=== PATIENT | male | born 1940 | race Caucasian/White ===

== ENCOUNTER 2019-10-14 18:05 | Inpatient (IN) | payer OTHER ==
[~2019-10-14] VITALS: Ht 180.3 cm; Wt 99.8 kg
[2019-10-15] MEDS ORDERED: ASA81BEC PO (01:23)
[2019-10-15] MEDS ORDERED: LIPITOR 40 MG T40 M1 PO (01:24)
[2019-10-15] MEDS ORDERED: COREG12.5 MG PO (01:24)
[2019-10-15] MEDS ORDERED: FLONASE 0.05%50 MCG NASAL ×2 (01:25)
[2019-10-15] MEDS ORDERED: GABAPENTIN100 MG PO (01:26)
[2019-10-15] MEDS ORDERED: GLIPIZIDE 10 MG10 MG PO (01:27)
[2019-10-15] MEDS ORDERED: LANTUS SOL100 UNIT/1 SUBQ (01:28)
[2019-10-15] MEDS ORDERED: LEVO-T50 MCG PO (01:28)
[2019-10-15] MEDS ORDERED: METFORMIN HCL500 M3 PO (01:29)
[2019-10-15] MEDS ORDERED: MIRALAX119 GM PO (01:29)
[2019-10-15] MEDS ORDERED: MOBIC7.5 MG PO (01:30)
[2019-10-15] MEDS ORDERED: NITROGLYCERIN0.4 MG SUBLING (01:31)
[2019-10-15] MEDS ORDERED: ONETOUCH ULTRA1 EAC1 MC (01:32)
[2019-10-15] MEDS ORDERED: KLOR-CON M2020 MEQ PO (01:33)
[2019-10-15] MEDS ORDERED: FLOMAX0.4 MG PO (01:34)
[2019-10-15] MEDS ORDERED: ACCUPRIL40 MG PO ×2 (01:34→01:35)
--- NOTE | 2019-10-15 04:23 | NUR ---
PT AOX4 WITH INTERMITTENT FORGETFULNESS. PT DENIES PAIN AT REST, REPORTS SEVERE PAIN IN BUTTOCKS AND BACK WITH MOVEMENT AND REPOSITIONING. PT NOTED TO HAVE EXCORIATION TO BOTH BUTTOCKS, REDDNESS, AND TENDERNESS TO AREA. APPLIED BARRIER CREAM, ENCOURAGED FREQUENT REPOSITIONING. PRN PO APAP AND PRN IV FENTANYL AVAILABLE. PT /DPOA AT BEDSIDE SHORTLY AFTER PT ARRIVED VIA EMS. PT AND /DPOA ORIENTED TO UNIT AND POLICIES. ENCOURAGED BOTH TO NOTIFY STAFF FOR ALL NEEDS. PT CONTINUES TO REQUIRE X1-2 ASSIST, WHILE ON BEDREST. PT NOTED TO HAVE GENERALIZED WEAKNESS. BED ALARM ON, CALL LIGHT WITHIN REACH, BED IN LOWEST POSITION. WILL CONTINUE TO MONITOR.
[2019-10-15 06:38] LABS: HEMATOCRIT 40.7 % (42.0-52.0); HEMOGLOBIN 13.1 gm/dL (14.0-18.0); MCH 30.7 pg (26.0-34.0); MCHC 32.2 g/dL (28.0-37.0); MCV 95.5 fL (80.0-100.0); RBC 4.27 mil/uL (4.50-6.00)
[2019-10-15 07:00] LABS: CALCIUM 8.7 mg/dL (8.5-10.1); CREATININE 1.3 mg/dL (0.7-1.3); POTASSIUM 3.8 mmol/L (3.5-5.1)
[2019-10-15 08:05] VITALS: BP 171/74
[2019-10-15 09:20] LABS: APTT 24.5 Seconds (24.5-32.8); INR 1.1
[2019-10-15 12:50] VITALS: BP 171/90
--- NOTE | 2019-10-15 14:04 | NUR ---
DISCHARGE PLANNING. POST ACUTE RECOMMENDED AT DISCHARGE. PATIENT REFERRAL FAXED TO [facility]. CALL PLACED TO [facility] TO NOTIFY. PT AND OT TO [facility]. FOLLOWING.
--- NOTE | 2019-10-15 14:06 | NUR ---
WOUND CONSULT; A BLISTER TO THE RIGHT INNER THIGH WAS IDENTIFIED. IT IS LINIAR AND S/S CONSISTANT WITH THE RAMOS BAG. THE BLISTER IS INTACT. THE COCCYX AREA HAS A SMALL FISSURE 2 CM X 0.5 CM X 0.1 CM. NO S/S OF INFECTION OBSERVED. RECOMMEDNATIONS; A LOW AIR LOSS PUMP, A FOAM DRESSING TO THE RIGHT MEDIAL LEG AND ZGUARD TO THE COCCYX WOUND. tHIS PATIENT MUST BE TURNED Q2H. DISCUSSED WITH EMMA
--- NOTE | 2019-10-15 14:30 | NUR ---
PT ADMITTED RELATED TO ACUTE CHOLECYSTITIS, ABSCESS GALLBLADDER S/P PERC. CM REVIEWED CHART AND SPOKE WITH CARE TEAM. CM MET WITH PT, SPOUSE, AND DTR AT BEDSIDE THIS DAY. SPOUSE INDICATED THAT PT HAD BEEN [facility], THAT HE HAD ADMITTED THERE 10/04 AND HAD GONE TO THE HOSPITAL IN [place] YESTERDAY 10/14. PRIOR TO THAT SPOUSE INDICATED THAT PT HAD BEEN LIVING AT HOME IN A HOUSE WITH HER WITH NO STEPS TO ENTER NONE INSIDE. SPOUSE INDICATED THAT PT HAS A FEE, 4WW WITH SEAT, WHEELCAHIR, AND LIFT CHAIR TO ASSIST WITH MOBILITY PROFESSOR OF NURSING. SHE STATED THAT PT HAD BEEN USING WC MOST RECENTLY AND HAD NEEDED ASSISTANCE WITH ALL ADLS FROM HER. DTR AND SPOUSE INDICATED THAT THEY DIDN'T WANT PT GOING BACK TO [facility] THAT THEY WERE INTERESTED IN PT GOING TO [facility]. CM CALLED AND SPOKE WITH [facility] AND FAXED REFERRAL OVER TO SEE IF THEY ARE IN NETWORK WITH [employer] AND MIGHT BE ABLE TO ACCPET. CM TO FOLLOW INDICATED WITH DC PLANNING. PT AND OT ORDERS WERE ENTERED.
[2019-10-15 16:45] VITALS: BP 140/66
--- NOTE | 2019-10-15 16:51 | NUR ---
Assumed pt care this am, pt was NPO since midnight. Biliary drain replaced by IR, elevated BP post op informed Dr. Fletcher who restarted his home meds. Monitorede bp this has been going down. Q2 turns done when allowed. Pain managed with medications, POC followed. Seen by would care team and wound care done by them. Pt was transferred to room 411, report given to senior suites nurse..
--- NOTE | 2019-10-15 18:19 | NUR ---
NURSE RECEIVED REPORT FROM NURSE WILCOX ON 4W. PT ARRIVED ON UNIT 1745. PT AOX4, PT HAS NAUSEA AND VOMITING. NURSE GAVE PRN ZOFRAN, PT DECLINED DINNER AT THIS TIME. BILIARY DRAIN IS PATENT. PT USES URINAL, SCDS ON BLE. AT BEDSIDE. LEFT HAND IV IS PATENT WITH NS RUNNING. CALL LIGHT IN REACH, WILL CONTINUE TO MONITOR.
[2019-10-15 19:41] VITALS: BP 179/74
[2019-10-15 22:55] VITALS: BP 171/79
[2019-10-16 00:10] LABS: GLYCOHEMOGLOBIN (HGB A1C) 8.8 % (4.8-5.6)
--- NOTE | 2019-10-16 03:25 | NUR ---
PATIENT ALERT AND ORIENTED TO SELF, HOWEVER, THE NIGHT PROGRESSED HE BECAME A&0 X3. COOPERATIVE WITH CARE. AUGUST TO DISTENDED ABDOMEN DRY AND INTACT. BILIARY DRAIN WITH GREENISH/BROWN DRAINAGE. IVF INFUSING W/O COMPLICATION. DENIES PAIN. AT BEDSIDE THROUGHOUT THE NIGHT AND IS A GOOD HISTORIAN. PATIENT REMAINS IN BED WITH TURNS HE STATES THAT HE IS WEAK. USING URINAL AND BEDPAN. FOLLOWS SIMPLE DIRECTIONS. BS MONITORED PER ORDER. BP ELEVATED AND SOCIOLOGY ADJUNCT INSTRUCTOR (LAUREN) HAD ORDERS WHICH WERE GIVEN AND BP IS BETTER. PATIENT RESTING QUIETLY AT TIME OF NOTE. WILL MONITOR.
[2019-10-16 04:12] VITALS: BP 167/71
--- NOTE | 2019-10-16 04:23 | NUR ---
PATIENTS BLOOD PRESSURE BEGAN AT 179/74 THEN 171/79 AND DOWN TO 167/71 AFTER ONE TIME ORDER OF COREG 12.5MG PO FROM CLEANING MAID (LAUREN). RESTING QUIETLY. WILL MONITOR.
[2019-10-16 07:20] VITALS: BP 164/65
--- NOTE | 2019-10-16 19:43 | NUR ---
ASSUMED CARE OF PATIENT AT 0715, PATIENT ALERT AND ORIENTED, FORGETFUL. DENIES PAIN THIS SHIFT. HAS DRAIN TO RIGHT FLANK AREA, DARK GREENISH DRAINAGE NOTED, EMPTIED 100CC THIS SHIFT. NEW IV RIGHT FOREARM PER IV TEAM, NS AT 75CC/HR. DR BINGHAM CONSULTED FOR POSSIBLE REMOVAL OF GALL BLADDER. PATIENT IS WEAK, PHYSICAL THERAPY GOT THE PATIENT UP TO THE CHAIR, MOD ASSIST X 2 TO GET BACK IN BED. PATIENT C/O BURNING WHEN URINATING, THIS RN NOTIFIED DR MENDEZ, ORDER FOR UA/CULTURE IF INDICATED ORDERED. AT BESIDE, WILL CONTINUE TO MONITOR.
[2019-10-16 20:37] VITALS: BP 163/74
[2019-10-17 00:02] LABS: URINE BILIRUBIN NEGATIVE (Negative); URINE BLOOD NEGATIVE (Negative); URINE CLARITY CLEAR; URINE COLOR YELLOW; URINE GLUCOSE-RANDOM* 1+ (Negative); URINE KETONES NEGATIVE (Negative); URINE LEUKOCYTES-REFLEX NEGATIVE (Negative); URINE NITRITE-REFLEX NEGATIVE (Negative); URINE PROTEIN (DIPSTICK) NEGATIVE (Negative); URINE UROBILINOGEN 0.2 E.U./dl (0.2-1.0)
[2019-10-17 00:05] VITALS: BP 144/64
--- NOTE | 2019-10-17 04:45 | NUR ---
PATIENT ALERT AND ORIENTED X2 AT BEGINNING OF SHIFT. HOWEVER, DURING THE NIGHT HE BECAME MORE COOPERATIVE AND SLEPT WELL. DENIES PAIN. BLOOD SUGAR MONITORED PER ORDER. IVF INFUSING W/O COMPLICATION. URINE SAMPLE SENT TO LAB FOR UA. USING URINAL AND HAD A MED STOOL WHICH WAS SOFT AND DARK BROWN. RESTING QUIETLY AT TIME OF NOTE. REMAINS AT HIS BEDSIDE THROUGHOUT THE NIGHT. WILL MONITOR PATIENT.
[2019-10-17 08:00] VITALS: BP 132/77; BP 180/69
--- NOTE | 2019-10-17 16:04 | HC ---
[facility] [address] CONSULTATION Name: DUC LLAMAS Room #: 411-P ADM IN M.R.#: [id number] Admission: 10/14/19 Attend Phys: Coni Fletcher MD Discharge: Date of : 36 Report #: [id number] THIS REPORT FOR: cc: ROHIT - Analia family physician/PCP ROHIT - Analia family physician/PCP Pablo Fink MD ~ THIS REPORT FOR: //name// CC: ROHIT physician/PCP Coni Fletcher DATE OF SERVICE: 10/16/2019 CONSULTING PHYSICIAN: Dr. Fink. REASON FOR CONSULTATION: Cholecystostomy drain. ASSESSMENT: Cholecystitis, severe, status post cholecystostomy tube placement and subsequent exchange. RECOMMENDATIONS: 1. Thank you for the consultation. I will follow along. 2. Continue drain. It is currently draining bile. Flush to drain b.i.d. 3. Continue antibiotics. HISTORY OF PRESENT ILLNESS: The patient is an 79-year-old gentleman with severe cholecystitis, who had a cholecystostomy drain placed in the outside facility. The patient was transferred here after having drain dislodgement. The drain was replaced. PAST MEDICAL HISTORY: 1. Diabetes. 2. Hypertension. 3. Constipation. 4. Hypothyroidism. 5. Morbid obesity. 6. Coronary artery disease. 7. Leg pain. 8. Urinary incontinence. 9. Fall. 10. Intractable low back pain. 11. Open wound to the right buttock. 12. Hyperlipidemia. PAST SURGICAL HISTORY: 1. Coronary stents. [facility] [address] [place] [address] CONSULTATION Name: DUC LLAMAS Room #: 411-P [facility] IN M.R.#: [id number] Admission: 10/14/19 Attend Phys: Coni Fletcher MD Discharge: Date of : 36 Report #: [id number] 2. Left shoulder surgery. 3. Neck surgery. 4. Colonoscopy. SOCIAL HISTORY: Denies use of alcohol, tobacco or recreational drugs. FAMILY HISTORY: Denies coagulopathy or malignancy. REVIEW OF SYSTEMS: CONSTITUTIONAL: No fever. No chills. HEENT: Denies blurring of vision, double vision, headaches, hearing loss, sinus drainage or sore throat. Denies blurring of vision, double vision, headaches, hearing loss, sinus drainage or sore throat. CARDIOVASCULAR: Denies chest pain, palpitations, orthopnea or paroxysmal nocturnal dyspnea. RESPIRATORY: Denies cough, wheezing, hemoptysis, or shortness of air. GASTROINTESTINAL: See above and below. GENITOURINARY: Denies dysuria or hematuria or kidney stones. No urinary frequency, urgency or incontinence. Denies dysuria or hematuria or kidney stones. No urinary frequency, urgency or incontinence. MUSCULOSKELETAL: No joint pain. No muscle pain. NEUROLOGICAL: Denies tremor, stroke or seizure. Denies tremor, stroke or seizure. HEMATOLOGIC / LYMPHATICS: Denies easy bruising, easy bleeding or enlarged lymph nodes. SKIN: No rash or ulceration. ENDOCRINE: No heat or cold intolerance PSYCHIATRIC: Denies depression, anxiety or schizophrenia. PHYSICAL EXAMINATION: VITAL SIGNS: Temperature 36.6, pulse 65, respiratory rate 16, blood pressure 154/69, pulse ox 94% on room air. GENERAL: No apparent distress, alert and oriented x3. HEENT: PERRLA, EOMI, MMM, NCAT NECK: Supple. No LAD CARDIOVASCULAR: Regular rhythm and rate. Hemodynamically stable. Normal capillary refill. Regular rhythm and rate. Hemodynamically stable. Normal capillary refill. PULMONARY: Nonlabored. Clear to auscultation bilaterally ABDOMEN: Soft, appropriate tenderness to palpation, mildly distended. No guarding, rebound or rigidity. The drain has green bile expelling from it. EXTREMITIES: Calves soft, nontender, no edema. SKIN: No rashes or bruises. PSYCHIATRIC: Normal mood and affect Normal mood and affect NEUROLOGICAL: Grossly intact. CN II-XII grossly intact. MUSCULOSKELETAL: 5/5 strength in upper extremities and lower extremities [address] [address] CONSULTATION Name: DUC LLAMAS Aaliyah Room #: 411-P ADM IN [facility]#: [id number] Admission: 10/14/19 Attend Phys: Coni Fletcher MD Discharge: Date of : 36 Report #: [id number] bilaterally LYMPHATICS: No cervical, inguinal, or supraclavicular lymphadenopathy. LABORATORY DATA: White blood count 7, hemoglobin 13.1, hematocrit 40.7, platelets 405. Sodium 145, potassium 3.8, creatinine 1.3, glucose 234, calcium 8.7. <ELECTRONICALLY SIGNED> By: Pablo Fink MD 10/17/19 1604 1815 0020 Pablo Fink MD /nt
--- NOTE | 2019-10-17 16:24 | NUR ---
ASSUMED CARE OF PATIENT AT 0715, PATIENT ALERT AND ORIENTED X 3. DENIES PAIN THIS SHIFT. RIGHT FOREARM IV IN PLACE WITH 75CC/HR. RIGHT SIDE DRAIN STILL IN PLACE, FLUSHED WITH NS 10ML. PATIENT ASSISTED UP TO THE W/C, WENT TO DINING AREA FOR LUNCH. PATIENT VOIDS PER URINAL. PATIENT HAD LARGE BM. AT BEDSIDE. WILL CONTINUE TO MONITOR.
[2019-10-17 16:28] VITALS: BP 177/84
[2019-10-17 19:45] VITALS: BP 155/72
--- NOTE | 2019-10-18 05:09 | NUR ---
PATIENT ALERT AND ORIENTED X3. COOPERATIVE WITH CARE. AT BEDSIDE THROUGHOUT THE NIGHT. UP IN CHAIR AT BEGINNING OF SHIFT AND TRANSFERRED TO BED WITH TWO ASSIST, PATIENT DID WELL. MORE ALERT, HOWEVER, CONFUSION AT NIGHT BUT REORIENTED. VOIDING PER URINAL, CLEAR YELLOW URINE. DRAIN ON RIGHT SIDE WITH GREENISH BROWN DISCHARGE, NO SMELL. INCISION DRESSING D/I. BS MONITORED PER ORDER. IV TO RIGHT ARM INFILTRATED AT APPROX. 0200, THIS NURSE WILL CONTACT THE IV TEAM IN THE AM FOR RESTARTING, ARM ELEVATED. PATIENT DRINKS WATER ADEQUATELY. RESTING QUIETLY. WILL MONITOR.
[2019-10-18 07:52] VITALS: BP 169/76
--- NOTE | 2019-10-18 10:41 | NUR ---
JENNI reviewed chart and spoke with nursing and attending physician. Pt was [facility] to [facility] and is progressing towards goals for discharge. sr. merchandise planner to follow up on referral sent to [facility] jaime Archibald on Friday. Will need insurance authorization. JENNI met with pt and at bedside to provide update. Both are aware and agreeable with discharge plan. JENNI is following to assist as needed with discharge planning.
[2019-10-18 14:36] VITALS: BP 145/69
--- NOTE | 2019-10-18 19:45 | NUR ---
ASSUMED CARE OF THE PATIENT AT 0715, PATIENT ALERT X 3. AT BEDSIDE. PATIENT DENIES PAIN AT START OF THE SHIFT, BUT C/O PAIN WITH LOWBACK, TYLENOL 650 MG GIVEN, WITH GOOD RELIEF. PATIENT HAS DRAIN TO RIGHT FLANK AREA, WITH DARK GREEM DRAINAGE, 100CC THIS SHIFT. ZGUARD APPLIED TO BUTTOCKS PRN. PATIENT UP TO THE CHAIR TODAY. PATIENT MAY BE TRANSFERRED BACK TO [facility]. RIGHT ARM SWOLLEN FROM NIGHTSHIFT. NO IV ACCESS THIS AM. THIS RN CALLED IV TEAM, NEW IV PLACED LEFT FOREARM, IV FLUIDS D/C. IV ANTIBIOTICS STILL ORDERED. VOIDS PER URINAL. WILL CONTINUE TO MONITOR.
[2019-10-18 20:14] VITALS: BP 158/76
--- NOTE | 2019-10-19 06:14 | NUR ---
Assumed pt care at 1900, A/OX3,able to make needs known at the bedside for the night. VSS. Denies pain on assessment. Pt is continent of bladder but had episodes of incontinence at night. Voids per urinal. Has a biliary drain on RUQ draining green drainage. Requires moderate assist with cares/transfers. Pt resting w/o distress noted at this time. Fall precautions in place,will continue to monitor pt.
[2019-10-19 08:20] VITALS: BP 160/76
--- NOTE | 2019-10-19 10:36 | NUR ---
WOUND CARE F/U ASSESSED WOUNDS W/ STAFF MASTER [employer] CLARISA, COCCYX WOUND HEALING, NO S/S INFECTION, BLANCHABLE, RIGHT THIGH BLISTERED AREA HEALING, NO LONGER FLUID FILLED, REMAINS ON LOW AIR LOSS PUMP TO BED, ALERT AND COOPERATIVE RECOMMENDATIONS CONT CURRENT POC, ZGUARD DAILY AND PRN COCCYX/SACRAL AREA, SILICONE BORDER FOAM DRSG TO RIGHT INNTER THIGH, CHANGE 3X WEEK AND PRN, OFF LOADING, PRESSURE RELIEF STAFF MASTER [employer] AWARE
--- NOTE | 2019-10-19 10:45 | NUR ---
JENNI reviewed chart and spoke with nursing, attending physician and surgeon. Pt is progressing towards goals for discharge. Pt will discharge with drain in place. Pt to follow up with surgery in 2 weeks. JENNI notified by Mariama garvin [facility] that pt's insurance is out of network and pt will have a $160/day copay for days 1-38 at their facility. JENNI spoke with pt's dtr, Elizabet, via phone to provide update. JENNI met with pt's at bedside to discuss. Pt's states they do not want to pay the copay and are agreeable with returning to [facility]. facility planner to fax referral to [facility]. JENNI notified that insurance did provide authorization for skilled. JENNI contacted UR RN to request insurance to transfer auth to [facility]. Pt will need stretcher transportation. JENNI is following to assist as needed with discharge planning.
[2019-10-19 12:00] VITALS: BP 144/67
[2019-10-19] MEDS ORDERED: HUMALOG100 UNIT/1 SUBQ (15:33)
[2019-10-19] MEDS ORDERED: AMLODIPINE BESY10 MG PO (15:33)
[2019-10-19] MEDS ORDERED: LANTUS SOL100 UNIT/1 SUBQ (15:33)
[2019-10-19] MEDS ORDERED: AUGMENTIN 875-1 EACH PO (16:08)
[2019-10-19 16:40] LABS: CALCIUM 8.2 mg/dL (8.5-10.1); POTASSIUM 3.8 mmol/L (3.5-5.1)
[2019-10-19 16:46] LABS: ALBUMIN 2.5 g/dL (3.4-5.0); TOTAL BILIRUBIN 0.3 mg/dL (<0.1-1.0); TOTAL PROTEIN 5.8 g/dL (6.4-8.2)
[2019-10-19 17:58] VITALS: BP 144/67
--- NOTE | 2019-10-19 18:14 | NUR ---
[facility] PT CARE AT 0700. PT IS AOX4. PT IS PENDING D/C TO A FACILITY. PT DID C/O MILD PAIN NEAR THE DRAIN IN HIS ABDOMEN BUT DENIES PAIN MEDICATION. PT DID C/O NOT FEELING WELL AFTER PT WORKED WITH HIM. HE SAT IN THE CHAIR FOR MAYBE 45 MINUTES BEFORE WANTING TO GO BACK TO BED. PT REFUSED LUNCH AND DINNER SO NO INSULIN WAS GIVEN. PT WAS ABLE TO HOLD DOWN CLEAR LIQUIDS AND D/C WAS APPROVED. BILILARY DRAIN IN PLACE RUQ ABDOMEN, EMPTIED 100ML FROM DRAIN. PT WAS FULLY INCONTINENT AND UNABLE TO TELL WHEN HE NEED TO URINATE. HIS BED WAS WET AND HAD TO BE CHANGED OFTEN. WOUND TO RIGHT UPPER THIGH AND COCCYX CHECKED BY WOUND CARE NURSE, STABLE WITH IMPROVEMENT. PT IS MAX ASSIST WITH 2, GAIT BELT USED, FALL PRECAUTIONS IN PLACE, CALL LIGHT WITHIN REACH.
== END 2019-10-19 18:15 | DRG 698 ==
LOC: 4W 18:05 → 4N 10-15 16:00
PROVIDERS: Hospitalist; Nurse Practitioner Family; Radiology Vascular & Interventional Radiology; ADMIT Internal Medicine
PROC: 0F9430Z Drainage of Gallbladder with Drainage Device, Percutaneous Approach (ICD-10-PCS; principal; 2019-10-14)
DX: T83.020A Displacement of cystostomy catheter, initial encounter (principal); E43 Unspecified severe protein-calorie malnutrition; K81.0 Acute cholecystitis; L02.91 Cutaneous abscess, unspecified; Y82.8 Other medical devices associated with adverse incidents; E11.9 Type 2 diabetes mellitus without complications; I10 Essential (primary) hypertension; E03.9 Hypothyroidism, unspecified; E66.01 Morbid (severe) obesity due to excess calories; I25.10 Atherosclerotic heart disease of native coronary artery without angina pectoris; E78.5 Hyperlipidemia, unspecified; N40.0 Benign prostatic hyperplasia without lower urinary tract symptoms; M54.9 Dorsalgia, unspecified; G89.29 Other chronic pain; K59.00 Constipation, unspecified; G47.00 Insomnia, unspecified; Y92.89 Other specified places as the place of occurrence of the external cause; Z95.5 Presence of coronary angioplasty implant and graft; Z68.30 Body mass index [BMI] 30.0-30.9, adult; Z91.81 History of falling; Z83.3 Family history of diabetes mellitus; Z87.891 Personal history of nicotine dependence; Z79.899 Other long term (current) drug therapy
CPT/HCPCS: 10047; 10790

== ENCOUNTER → 2020-01-26 | Outpatient (CLI) | payer OTHER ==
[~2020-01-26] MED LIST: ACCUPRIL40 MG PO; AMLODIPINE BESY10 MG PO; ASA81BEC PO; AUGMENTIN 875-1 EACH PO; COREG12.5 MG PO; FLOMAX0.4 MG PO; FLONASE 0.05%50 MCG NASAL; GABAPENTIN100 MG PO; GLIPIZIDE 10 MG10 MG PO; HUMALOG100 UNIT/1 SUBQ; KLOR-CON M2020 MEQ PO; LANTUS SOL100 UNIT/1 SUBQ; LEVO-T50 MCG PO; LIPITOR 40 MG T40 M1 PO; METFORMIN HCL500 M3 PO; MIRALAX119 GM PO; MOBIC7.5 MG PO; NITROGLYCERIN0.4 MG SUBLING; ONETOUCH ULTRA1 EAC1 MC
== END ==
LOC: SJCVC 15:00
DX: I44.7 Left bundle-branch block, unspecified (principal); R94.31 Abnormal electrocardiogram [ECG] [EKG]; I25.10 Atherosclerotic heart disease of native coronary artery without angina pectoris; I10 Essential (primary) hypertension; E78.2 Mixed hyperlipidemia; I26.99 Other pulmonary embolism without acute cor pulmonale; E11.9 Type 2 diabetes mellitus without complications; I73.9 Peripheral vascular disease, unspecified; I25.5 Ischemic cardiomyopathy; Z82.49 Family history of ischemic heart disease and other diseases of the circulatory system; Z79.899 Other long term (current) drug therapy; Z87.891 Personal history of nicotine dependence

== ENCOUNTER → 2020-07-31 | Outpatient (CLI) | payer OTHER | LOC: SJCVC 13:54 | PROVIDERS: ATTEND Internal Medicine Cardiovascular Disease | DX: R94.31 Abnormal electrocardiogram [ECG] [EKG] (principal); I44.7 Left bundle-branch block, unspecified; I25.10 Atherosclerotic heart disease of native coronary artery without angina pectoris; I10 Essential (primary) hypertension; E78.2 Mixed hyperlipidemia; I26.99 Other pulmonary embolism without acute cor pulmonale; E11.9 Type 2 diabetes mellitus without complications; I77.9 Disorder of arteries and arterioles, unspecified; I25.5 Ischemic cardiomyopathy; Z79.899 Other long term (current) drug therapy; Z87.891 Personal history of nicotine dependence ==